=== PATIENT | female | born 1940 | race Caucasian/White ===

== ENCOUNTER 2017-05-30 12:13 | Outpatient (CLI) | payer MEDICARE ==
[2017-05-30 19:21] LABS: ADENOVIRUS DNA NEGATIVE (NEGATIVE); BORDETELLA PERTUSSIS DNA NEGATIVE (NEGATIVE); SOURCE: NASOPHARYNGEAL SWAB
== END 2017-05-30 12:14 ==
LOC: LAB 12:13 → ED 12:13 → LAB 12:14 → EDSTATUS 12:15
PROVIDERS: ATTEND Registered Nurse
DX: R05 Cough (principal)
CPT/HCPCS: 87486; 87581; 87633; 87798